=== PATIENT | female | born 1960 ===

== ENCOUNTER 2018-05-11 09:12 | Outpatient (CLI) | payer OTHER | END 2018-05-11 09:22 | disposition home or self-care (01) | LOC: SONOGRAMA 09:12 | DX: E04.2 Nontoxic multinodular goiter (principal) ==

== ENCOUNTER 2019-08-23 09:51 | Outpatient (CLI) | payer OTHER | END 2019-08-23 09:59 | disposition home or self-care (01) | LOC: SONOGRAMA 09:51 | DX: E04.2 Nontoxic multinodular goiter (principal) ==